=== PATIENT | female | born 1960 | race Caucasian/White ===

== ENCOUNTER 2016-12-06 19:50 | Emergency (ER) | payer OTHER ==
[~2016-12-06] VITALS: Ht 172.7 cm; Wt 107.0 kg
[~2016-12-06 19:50] MED LIST: ADVAIR 500-501 EACH INH; ADVIL200 M1 PO; BENTYL20 MG PO; BUTRANS1 EAC3 TOP; CYCLOBENZAPRINE10 M1 PO; ESZOPICLONE2 MG PO; HYDROCODONE/ACE1 TA2 PO; METRONIDAZOLE0.75% TOP; MULTI-DAY VITA1 EACH PO; OXCARBAZEPINE600 M1 PO; PAROXETINE HYDR20 MG PO; PREDNISONE 20MG20 MG PO; PREDNISONE10 M2 PO; PROAIR HFA8.5 GM INH; SEROQUEL 25MG25 MG PO; SEROQUEL50 M1 PO; SIMVASTATIN40 M1 PO; TRILEPTAL600 MG PO; VALACYCLOVIR500 MG PO
--- NOTE | 2016-12-06 21:30 | ED DYSPNEA/ASTHMA COMPLAINT ---
History of Present Illness General Chief Complaint: Wheezing/Asthma Stated Complaint: ASTHMA ACTING UP PERPT Source: patient, old records Exam Limitations: no limitations Vital Signs & Intake/Output Vital Signs & Intake/Output Vital Signs Date Time Temp Pulse Resp B/P Pulse O2 O2 Flow FiO2 Ox Delivery Rate 12/06 2348 99.3 89 18 121/60 94 Room Air 12/06 2219 100.5 92 18 166/114 99 12/06 2146 99 12/06 2139 99 12/060 98.6 85 18 183/85 100 Room Air ED Intake and Output 12/07 0000 12/06 1200 Intake Total 0 Output Total Balance 0 Intake, Oral 0 Patient 236 lb Weight Allergies Coded Allergies: Penicillins (RASH 09/03/16) lindane (PER PT RECTAL BLEEDING DIARRHEA 12/06/16) morphine (GI UPSET, VOMITING 09/03/16) oxcarbazepine (BECAME HYPONATREMIC 12/06/16) Reconcile Medications Albuterol Sulfate (Proair Hfa) 90 MCG HFA.AER.AD 2 PUF INH PRN ASTHMA ( Reported) Albuterol Sulfate 2.5 MG/3 ML (0.083 %) VIAL.NEB 1 Vial INH/ANI AD PRN ASTHMA (Reported) Azithromycin 250 MG TABLET 1 DP PO AD ANTIBIOTIC (Reported) 2 the first day followed by 1 for days 2-5 Buprenorphine (Butrans) 15 MCG/HOUR PATCH.TDWK 1 PAT TOP QTHURS PAIN ( Reported) Divalproex Sodium 250 MG TABLET.DR 3 TAB PO QPM MENTAL HEALTH (Reported) Eszopiclone 3 MG TABLET 1 TAB PO QPM SLEEP (Reported) Fluticasone/Salmeterol (Advair 500-50 Diskus) 500 MCG-50 MCG/DOSE BLST.W.DEV 1 PUF INH BID ASTHMA (Reported) Ibuprofen (Advil) 200 MG CAPSULE 3 TAB PO BID PAIN (Reported) Methocarbamol (Robaxin-750) 750 MG TABLET 1 TAB PO PRN MUSCLE SPASMS ( Reported) Methylprednisolone 4 MG TAB.DS.PK STEROID (Reported) Multivitamin (Multi-Day Vitamins) 1 EACH TABLET 1 TAB PO DAILY SUPPLEMENT ( Reported) PAROXETINE HCL (Paroxetine Hydrochloride) 20 MG TAB 1 TAB PO DAILY MENTAL HEALTH (Reported) Promethazine HCl/Codeine (Promethazine-Codeine Syrup) 6.25 MG-10 MG/5 ML SYRUP 5 ML PO Q6H PRN COUGH (Reported) Quetiapine Fumarate (Seroquel) 50 MG TABLET 3 TAB PO QPM SLEEP (Reported) Robitussin AC (Guaifenesin-Codeine Syrup) 200 MG-20 MG/10 ML LIQUID 5 ML PO Q4 -6HR PRN COUGH Simvastatin (Simvastatin*) 40 MG TABLET 1 TAB PO QPM CHOLESTEROL (Reported) VALACYCLOVIR HCL (Valacyclovir) 500 MG TAB 1 TAB PO BID INFECTION (Reported) Triage Note: PT TO ED FOR WORSENING ASTHMA AND COUGH OVER THE PAST WEEK, SAW PCP ON FRIDAY WHO GAVE HER A PREDNISONE TAPER AND ZPACK WITH NO RELIEF, HAS BEEN TRYING NEB TX'S AT HOME WITH NO RELIEF AND WORSENING PEAK FLOWS WELL. ALSO C/O R EAR PAIN. DENIES ANY FEVER, C/O STUFFY NOSE AND GREEN PHLEGM. Triage Nurses Notes Reviewed? yes Onset: Gradual Duration: day(s): (4) Timing: recent history Severity: moderate Activities at Onset: none Prior Episodes/Possible Cause: occasional episodes Modifying Factors: Improves With: immobilization. Associated Symptoms: cough HPI: Patient is a 56-year-old female with history of asthma presenting to the emergency Department with chief complaint of increasing shortness of breath, wheezing, nonproductive cough has been going on for the past 4-5 days. She saw her primary care physician 4 days ago who diagnosed her with asthma exacerbation and bronchitis. They started her on the Medrol Dosepak and Robitussin with codeine. She reports that it has not been helping. She called back today and they started her on a Z-Henry. She reports that she took 500 mg today. She came in this evening because her peak flows at home are about 250. History of similar symptoms. She usually improves after a dose of Solu-Medrol. Denies any fevers or chills. Positive malaise. Denies recent travel. No lower extremity edema. No palpitations. Denies sputum production. Also reporting upper respiratory congestion, sinus congestion. (DEL CORTEZ) Past History Travel History Traveled to [place] past 21 day No Medical History Any Pertinent Medical History? see below for history Neurological: NONE EENT: NONE Cardiovascular: NONE Respiratory: asthma Gastrointestinal: GERD Hepatic: NONE Renal: NONE, nephrolithiasis Musculoskeletal: NONE Psychiatric: bipolar disease Endocrine: NONE Blood Disorders: NONE Cancer(s): NONE PHOTOGRAPHIC LABORATORY TECHNICIAN/Reproductive: NONE History of MRSA: No History of VRE: No History of CDIFF: No Surgical History Surgical History: cholecystectomy, hysterectomy Psychosocial History Who do you live with Patient/Self Services at Home None What is your primary language Czech Tobacco Use: Never used ETOH Use: denies use Illicit Drug Use: UTD Family History Hx Contributory? No (DEL CORTEZ) Review of Systems Review of Systems Constitutional: Reports: malaise. Comments Review of systems: See HPI, All other systems negative. Constitutional, no chills fever or weight loss HEENT: No visual changes no sore throat Cardiovascular: No chest pain ,palpitation , orthopnea or ankle swelling Skin, no jaundice no rashes Respiratory: No sputum or hemoptysis GI: No nausea no vomiting : No dysuria No hematuria Muscle skeletal: no back pain, no neck pain, Neurologic: No numbness no akers Immunology: No splenectomy or history of AIDS (DEL CORTEZ) Physical Exam Physical Exam General Appearance: well developed/nourished, no apparent distress, alert, awake , comfortable Respiratory: rhonchi, wheezing Comments: Well-developed well-nourished person in no acute distress HEENT: Normal EENT exam, extraocular motion intact, no nystagmus. Pupils equally round and reactive to light and accommodation. Nose is atraumatic. External auditory canal and Tympanic membranes clear. Pharynx mildly erythematous, no exudate, clearing secretions without difficulty.. No swelling or edema. Neck: Supple, no lymphadenopathy, normal range of motion without pain or tenderness Back: Nontender, no CVA tenderness. Full range of motion Cardiovascular: Regular rate and rhythms no murmurs rubs or gallops, normal JVP Respiratory: Chest nontender. No respiratory distress.diffuse wheezing and rhonchi to auscultation bilaterally. Extremity: No edema Neuro: Alert oriented x3 Skin: No appreciable rash on exposed skin, skin is warm and dry. Psych: Mood and affect is normal, memory and judgment is normal. Core Measures ACS in differential dx? No Severe Sepsis Present: No Septic Shock Present: No (DEL CORTEZ) Progress Differential Diagnosis: asthma, bronchitis, costochondritis, CHF, COPD Plan of Care: Orders Procedure Date/time Status XRY-CHEST XRAY, PA AND LATERAL 12/06 2129 Active Diagnostic Imaging: Viewed by Me: Radiology Read. Discussed w/RAD: Radiology Read. Radiology Impression: PATIENT: RUPA ROBERTO PRESENT AGE: 56 PATIENT ACCOUNT NO: [id number] : 61 LOCATION: [facility] ORDERING PHYSICIAN: DEL COOK SERVICE DATE: 12/06/16-2129 EXAM TYPE: RAD - XRY-CHEST XRAY, PA AND LATERAL EXAMINATION: XR CHEST CLINICAL INFORMATION: Shortness of breath, cough COMPARISON: CT 09/03/2016 TECHNIQUE: PA and lateral views of the chest were obtained. FINDINGS: The lungs are clear with no focal consolidation. No evidence of pneumothorax, pulmonary edema, or pleural effusions. The cardiomediastinal contour is unremarkable. No acute osseous findings are seen. IMPRESSION: No acute cardiopulmonary findings. Initial ED EKG: none Comments: 12/06/2016 9:55:51 PM arrival patient given DuoNeb treatment followed by continuous neb. Patient will go for chest x-ray. Im Solu-Medrol ordered. Oxygen saturation within normal range on room air. 12/07/2016 12:06:05 AM and reevaluation this and is feeling improved, starting to cough up phlegm. Ambulatory oxygen saturation remains around 97% on room air. Patient given dose of Robitussin codeine. Patient feels comfortable being discharged. She will continue Z-Henry that she has at home, given another prescription for Robitussin with codeine. She is also given Solu-Medrol here in the emergency department. She'll continue Medrol Dosepak tomorrow. She is educated on signs and symptoms to return. Otherwise she'll follow-up with her primary care physician on Friday. Patient is nontoxic. (FELISHA COOK,DEL) Departure Departure Time of Disposition: 2354 Disposition: HOME OR SELF CARE Condition: Stable Clinical Impression Primary Impression: Bronchitis Referrals: CHRISTA ROACH MD (PCP/Family) Additional Instructions: Follow-up with your primary care physician call to make an appointment. Increase fluids. Continue Z-Henry. Use nebulizer treatments as directed. Continue Medrol Dosepak. Take Robitussin with codeine as prescribed. Departure Forms: Customer Survey General Discharge Information Prescriptions: Current Visit Scripts Robitussin AC (Guaifenesin-Codeine Syrup) 5 ML PO Q4-6HR PRN COUGH #200 ML (DEL CORTEZ) PA/BRUSH FABRICATION SUPERVISOR Co-Sign Statement Statement: ED Attending supervision documentation- [] I saw and evaluated the patient. I have also reviewed all the pertinent lab results and diagnostic results. I agree with the findings and the plan of care as documented in the PA's/BRUSH FABRICATION SUPERVISOR's documentation. [x] I have reviewed the ED Record and agree with the PA's/BRUSH FABRICATION SUPERVISOR's documentation. [] Additions or exceptions (if any) to the PAs/BRUSH FABRICATION SUPERVISOR's note and plan are summarized below: [] (KATARINA CUMMINS,SARAH Roper) Critical Care Note Critical Care Note Critical Care Time: non-applicable (DEL CORTEZ)
[2016-12-06] MEDS ORDERED: DIVALPROEX SOD250 M2 PO (22:41)
[2016-12-06] MEDS ORDERED: AZITHROMYCIN250 M1 PO (22:41)
[2016-12-06] MEDS ORDERED: ALBUTEROL2.5 MG/3 M INH/SOL (22:41)
[2016-12-06] MEDS ORDERED: PROMETHAZINE-C118 ML PO (22:42)
[2016-12-06] MEDS ORDERED: METHYLPREDNISOLO4 M2 PO (22:42)
[2016-12-06] MEDS ORDERED: ESZOPICLONE3 M1 PO (22:45)
[2016-12-06] MEDS ORDERED: ROBAXIN-750750 M1 PO (22:46)
--- NOTE | 2016-12-06 23:30 | RADIOLOGY REPORT ---
EXAMINATION: XR CHEST CLINICAL INFORMATION: Shortness of breath, cough COMPARISON: CT 09/03/2016 TECHNIQUE: PA and lateral views of the chest were obtained. FINDINGS: The lungs are clear with no focal consolidation. No evidence of pneumothorax, pulmonary edema, or pleural effusions. The cardiomediastinal contour is unremarkable. No acute osseous findings are seen. IMPRESSION: No acute cardiopulmonary findings.
[2016-12-06 23:48] VITALS: BP 121/60
[2016-12-06] MEDS ORDERED: GUAIFENESIN-COD10 ML PO (23:56)
== END 2016-12-07 00:18 ==
LOC: ERH 19:50
DX: J40 Bronchitis, not specified as acute or chronic (principal)
CPT/HCPCS: 1263; 1426; 94644; 96372; J0131; J2930